=== PATIENT | female | born 1995 | race Caucasian/White ===

== ENCOUNTER 2020-04-02 14:34 | Emergency (ER) | payer BC ==
[2020-04-02] MEDS ORDERED: ACETAMINOPHEN 325 MG TABLET PO ONE (15:48)
[2020-04-02] MEDS ORDERED: RINGERS LACTATED IV ONE (15:48)
--- NOTE | 2020-04-02 15:50 | ER Document Report ---
ED Medical Screen (RME) - General Chief Complaint: Abscess Stated Complaint: ABSCESS Time Seen by Provider: 04/02/20 15:48 Primary Care Provider: ROSA ELENA FRACNO PA-C [Primary Care Provider] - Follow up as needed Information source: Patient Notes: Patient presents reporting pilonidal abscess for the past week. Patient denies any fever. Patient complains of sacral tenderness. Patient denies any previous history of pilonidal abscess. Patient tachycardic in triage. I have greeted and performed a rapid initial assessment of this patient. A comprehensive ED assessment and evaluation of the patient, analysis of test results and completion of the medical decision making process will be conducted by additional ED providers. Physical Exam - Vital signs Vitals: Temp Pulse Resp BP Pulse Ox 98.2 F 135 H 18 172/79 H 100 04/02/20 14:39 04/02/20 14:39 04/02/20 14:39 04/02/20 14:39 04/02/20 14:39 - General General appearance: Alert - Cardiovascular Rhythm: Tachycardia Heart sounds: S1 appreciated, S2 appreciated Course - Re-evaluation Re-evalutation: 04/02/20 15:50 Charge nurse advised of patient status. - Vital Signs Vital signs: Temp Pulse Resp BP Pulse Ox 98.2 F 135 H 18 172/79 H 100 04/02/20 14:39 04/02/20 14:39 04/02/20 14:39 04/02/20 14:39 04/02/20 14:39 Doctor's Discharge - Discharge Referrals: ROSA ELENA FRANCO PA-C [Primary Care Provider] - Follow up as needed
[2020-04-02] MEDS ORDERED: FENTANYL CITRATE INJ/PF 100 MCG/2 ML AMPUL IV ONE ×2 (16:18→18:11)
[2020-04-02] MEDS ORDERED: CEFAZOLIN 1 GM/D5W RTU 1 GM/50 ML RTUPB IV ONE (16:20)
[2020-04-02] MEDS ORDERED: METRONIDAZOLE 500 MG/NS RTU 500 MG/100 ML RTUPB IV ONE (16:20)
--- NOTE | 2020-04-02 16:23 | ER Document Report ---
ED Skin Rash/Insect Bite/Abscs - General Mode of Arrival: Ambulatory Information source: Patient, Parent - HPI Patient complains to provider of: Tender/swollen area Onset: Last week Onset/Duration: Worse Quality of pain: Sharp Pain Level: 5 Skin Character: Tenderness, Warm Skin Temperature: Warm Quality of rash: Painful Exacerbated by: Movement Relieved by: Denies Similar symptoms previously: No Recently seen / treated by doctor: No <BROOKLYN BURNS - Last Filed: 04/02/20 20:26> <AZAR HU - Last Filed: 04/02/20 21:48> - General Chief Complaint: Abscess Stated Complaint: ABSCESS Time Seen by Provider: 04/02/20 15:48 Primary Care Provider: MG RIOS MD [COMMUNITY BASED STAFF] - Follow up as needed Notes: Patient presents complaining of tenderness and swelling to the sacral area for the past week. Patient without any fever. Patient without any history of MRSA. (BROOKLYN BURNS) - Related Data Allergies/Adverse Reactions: No Known Allergies Allergy (Verified 04/02/20 16:51) Past Medical History - General Information source: Patient, Parent - Social History Smoking Status: Never Smoker Frequency of alcohol use: None Drug Abuse: None Lives with: Family Family History: Reviewed & Not Pertinent - Medical History Medical History: Negative Surgical Hx: Negative <BROOKLYN BURNS - Last Filed: 04/02/20 20:26> Review of Systems - Review of Systems Constitutional: No symptoms reported. denies: Fever EENT: No symptoms reported Cardiovascular: No symptoms reported. denies: Chest pain Respiratory: No symptoms reported. denies: Cough Gastrointestinal: No symptoms reported. denies: Nausea, Vomiting Genitourinary: No symptoms reported Female Genitourinary: No symptoms reported Musculoskeletal: No symptoms reported Skin: Other - Abscess with surrounding erythema Hematologic/Lymphatic: No symptoms reported Neurological/Psychological: No symptoms reported <BROOKLYN BURNS - Last Filed: 04/02/20 20:26> Physical Exam - General General appearance: Appears well, Alert In distress: None - HEENT Head: Normocephalic, Atraumatic Eyes: Normal Conjunctiva: Normal Nasal: Normal Mouth/Lips: Normal Mucous membranes: Normal Neck: Normal, Supple. No: Lymphadenopathy - Respiratory Respiratory status: No respiratory distress Chest status: Nontender Breath sounds: Normal. No: Rales, Rhonchi, Stridor, Wheezing Chest palpation: Normal - Cardiovascular Rhythm: Tachycardia Heart sounds: S1 appreciated, S2 appreciated Murmur: No - Back Back: Normal, Nontender - Extremities General upper extremity: Normal inspection, Normal strength General lower extremity: Normal inspection, Normal strength - Neurological Neuro grossly intact: Yes Cognition: Normal [place] Coma Scale Eye Opening: Spontaneous [place] Coma Scale Verbal: Oriented [place] Coma Scale Motor: Obeys Commands [place] Coma Scale Total: 15 - Psychological Associated symptoms: Normal affect, Normal mood - Skin Skin Temperature: Warm Skin Moisture: Dry Skin Color: Erythema - Area of erythema surrounding area concerning for pilonidal abscess to right superior aspect of gluteal cleft <BROOKLYN BURNS - Last Filed: 04/02/20 20:26> - Vital signs Vitals: Temp Pulse Resp BP Pulse Ox 98.2 F 135 H 18 172/79 H 100 04/02/20 14:39 04/02/20 14:39 04/02/20 14:39 04/02/20 14:39 04/02/20 14:39 Course - Laboratory Result Diagrams: 04/02/20 16:50 04/02/20 16:50 <BROOKLYN BURNS - Last Filed: 04/02/20 20:26> - Laboratory Result Diagrams: 04/02/20 16:50 04/02/20 16:50 <AZAR HU - Last Filed: 04/02/20 21:48> - Re-evaluation Re-evalutation: 04/02/20 16:34 Patient's mother who is at bedside is a nurse and was refusing to have nurses start any lab work without further explanation. Provider to bedside to explain reasoning for that work-up that was ordered. Patient and mother are agreeable with the plan to diagnostic evaluation at this time. 04/02/20 20:[address] pantoja regarding patient presentation and persistent tachycardia, Dr. pantoja recommends adding on TSH and d-dimer in addition to lactic acid. Bedside report and handoff given to Azar Hu NP. Patient and mother updated regarding patient's plan of care at this time. Mother voices concerns that she does not want to have needless testing performed. Attempted to explain to mother concerned about patient's persistent tachycardia in the setting of obvious infection with a leukocytosis. Discussed concerns about sepsis and need to make a safe decision regarding possible discharge. Mother is agreeable with 1 additional set of lab work to be performed. (BROOKLYN BURNS) 04/02/20 21:47 TSH and lactic acid were unremarkable. D-dimer was slightly elevated. Patient has no chest pain, no shortness of breath and her heart rate is 95. She has never had a DVT or PE and there is no family history of same. Discussed with Dr. Verma. No indication for chest CT at this time. Patient counseled on ED return precautions to include development of chest pain or shortness of breath. Patient and her mother verbalized understanding and agreement with return precautions and discharge plan. Patient declines the need for prescription pain medications. (AZAR HU) - Vital Signs Vital signs: Temp Pulse Resp BP Pulse Ox 98.2 F 135 H 18 132/74 H 99 04/02/20 14:39 04/02/20 14:39 04/02/20 21:01 04/02/20 21:01 04/02/20 20:19 - Laboratory Laboratory results interpreted by me: 04/02/20 04/02/20 04/02/20 16:50 16:50 16:50 WBC 19.2 H Lymph % (Auto) 6.8 L Absolute Neuts (auto) 16.6 H Seg Neutrophils % 86.4 H D-Dimer VBG pCO2 33.6 L Sodium 135.7 L Urine Blood Leukocyte Esterase Rfl 04/02/20 04/02/20 16:50 19:25 WBC Lymph % (Auto) Absolute Neuts (auto) Seg Neutrophils % D-Dimer 0.67 H VBG pCO2 Sodium Urine Blood MODERATE H Leukocyte Esterase Rfl SMALL H Procedures - Incision and Drainage Right Buttock Type: Simple Anesthetic type: 1% Lidocaine Blade size: 11 I&D procedure: Betadine prep applied Incision Method: Incision made by scalpel Amount/type of drainage: Large amount of purulent drainage Adult Front & Back picture: 1 - Site of incision and drainage 2 - Area of erythema <BROOKLYN BURNS - Last Filed: 04/02/20 20:26> Discharge <BROOKLYN BURNS - Last Filed: 04/02/20 20:26> <ODETTEAZAR - Last Filed: 04/02/20 21:48> - Discharge Clinical Impression: Abscess Condition: Stable Disposition: HOME, SELF-CARE Additional Instructions: You were seen for an abscess that required drainage. Please clean this area with soap and water twice daily and apply a topical antibiotic. Dress the area after each cleaning. Please return if you develop fever, vomiting, the pain at the site worsens, you notice spreading redness from the area, or you have any other symptoms that are concerning to you. Your heart rate was elevated during your visit. This is likely due to pain, anxiety and infection. Please return to the emergency department if you develop chest pain, shortness of breath or have a persistently elevated heart rate. We are happy to reevaluate you at any time. Please consider establishing primary care with a local physician. Prescriptions: Sulfamethoxazole/Trimethoprim [Bactrim Ds Tablet] 1 tab PO BID #14 tablet Referrals: MG RIOS MD [COMMUNITY BASED STAFF] - Follow up as needed
[2020-04-02] MEDS ORDERED: LIDOCAINE 1% INJ-PF (10 MG/ML) 30 ML SDV INFIL ONE (17:10)
[2020-04-02 17:25] LABS: ABSOLUTE BASOPHILS # (AUTO) 0.1 10^3/uL (0.0-0.2); ABSOLUTE LYMPHOCYTES (AUTO) 1.3 10^3/uL (0.5-4.7); ABSOLUTE MONOCYTES (AUTO) 1.2 10^3/uL (0.1-1.4); ABSOLUTE NEUT (AUTO) 16.6 10^3/uL (1.7-8.2); BASOPHILS % (AUTO) 0.3 % (0-2); EOSINOPHILS % (AUTO) 0.1 % (0-6); HEMATOCRIT 37.9 % (36.0-47.0); HEMOGLOBIN 12.9 g/dL (12.0-15.5); LYMPHOCYTES % (AUTO) 6.8 % (13-45); MEAN CORPUSCULAR HEMOGLOBIN 29.6 pg (27.0-33.4); MEAN CORPUSCULAR HGB CONC 34.1 g/dL (32.0-36.0); MEAN CORPUSCULAR VOLUME 87 fl (80-97); MONOCYTES % (AUTO) 6.4 % (3-13); PLATELET COUNT 253 10^3/uL (150-450); RED BLOOD COUNT 4.37 10^6/uL (3.72-5.28); RED CELL DISTRIBUTION WIDTH 13.4 % (11.5-14.0); SEGMENTED NEUTROPHILS % (AUTO) 86.4 % (42-78); TOTAL CELLS COUNTED % (AUTO) 100 %; WHITE BLOOD COUNT 19.2 10^3/uL (4.0-10.5)
[2020-04-02 17:26] LABS: VENOUS BLOOD BASE EXCESS -2.3 mmol/L; VENOUS BLOOD HCO3 21.2 mmol/L (20-32); VENOUS BLOOD PCO2 33.6 mmHg (35-63); VENOUS BLOOD PH 7.42 (7.30-7.42)
[2020-04-02 17:28] LABS: INTERNATIONAL RATION (INR) 1.03; PROTHROMBIN TIME 13.5 SEC (11.4-15.4)
[2020-04-02 17:34] LABS: ALBUMIN 4.2 g/dL (3.5-5.0); ALKALINE PHOSPHATASE 76 U/L (38-126); ANION GAP 9 (5-19); ASPARTATE AMINO TRANSFERASE 17 U/L (14-36); BILIRUBIN,TOTAL 0.4 mg/dL (0.2-1.3); BLOOD UREA NITROGEN 8 mg/dL (7-20); CALCIUM 9.1 mg/dL (8.4-10.2); CARBON DIOXIDE 23 mmol/L (22-30); CHLORIDE 104 mmol/L (98-107); GLUCOSE 97 mg/dL (75-110); POTASSIUM 3.8 mmol/L (3.6-5.0); TOTAL PROTEIN 7.2 g/dL (6.3-8.2)
[2020-04-02 20:09] LABS: APPEARANCE,URINE CLEAR; BILIRUBIN,URINE NEGATIVE (NEGATIVE); COLOR,URINE YELLOW; GLUCOSE, URINE NEGATIVE (NEGATIVE); KETONES,URINE NEGATIVE (NEGATIVE); PROTEIN,URINE NEGATIVE (NEGATIVE); URINE SPECIFIC GRAVITY 1.005; UROBILINOGEN,URINE NEGATIVE mg/dL (<2.0)
[2020-04-02 20:23] LABS: URINE AMPHETAMINES SCREEN NEGATIVE; URINE BARBITURATES SCREEN NEGATIVE; URINE BENZODIAZEPINES SCREEN NEGATIVE; URINE COCAINE SCREEN NEGATIVE; URINE MARIJUANA (THC) SCREEN NEGATIVE; URINE METHADONE SCREEN NEGATIVE; URINE PHENCYCLIDINE SCREEN NEGATIVE
--- NOTE | 2020-04-02 21:15 | EKG REPORT ---
SEVERITY:- ABNORMAL ECG - SINUS TACHYCARDIA RSR' IN V1 : Confirmed by: Jacob Schmid MD 02-Apr-2020 21:15:07
[2020-04-02 21:32] VITALS: BP 132/74
== END 2020-04-02 21:52 | disposition home or self-care (01) ==
LOC: ER 14:34
DX: L02.31 Cutaneous abscess of buttock (principal); R00.0 Tachycardia, unspecified
CPT/HCPCS: 93005; 96376; 99283; 96361; 96375; 96365; 96367; 36415; 87040; 87070; 87205; 82962; 83605; 84443; 84703; 85025; 85610; 87075; 80053; 81001; 80307; 85379; 82803; 93010; 10060; J0690; J3010; J3490 ×2; J7120; 87077

== ENCOUNTER 2020-08-15 12:44 | Emergency (ER) | payer BC ==
--- NOTE | 2020-08-15 13:42 | ER Document Report ---
ED Medical Screen (RME) - General Chief Complaint: Abscess Stated Complaint: POSSIBLE ABSCESS Time Seen by Provider: 08/15/20 13:27 - HPI Notes: Patient is a 25 y/o female with a history of a pilonidal cyst that was diagnosed in March 2020. She was seen in the ED at that time and had it drained. She states it has returned and would like it drained again today. She is requesting no further work-up as she had a full work-up last time and states it was "unnecessary". She tried to be seen by her primary care today but was unable to get in. She denies fever, nausea, and vomiting. - Related Data Allergies/Adverse Reactions: No Known Allergies Allergy (Verified 04/02/20 16:51) Past Medical History - Social History Chew tobacco use (# tins/day): No Frequency of alcohol use: None Drug Abuse: None Physical Exam - Vital signs Vitals: Temp Pulse Resp BP Pulse Ox 99.5 F 119 H 16 138/85 H 98 08/15/20 12:48 08/15/20 12:48 08/15/20 12:48 08/15/20 12:48 08/15/20 12:48 - General General appearance: Appears well, Alert In distress: None Course - Re-evaluation Re-evalutation: I have greeted and performed a rapid initial assessment of this patient. A comprehensive ED assessment and evaluation of the patient, analysis of test results and completion of medical decision making process will be conducted by an additional ED providers. - Vital Signs Vital signs: Temp Pulse Resp BP Pulse Ox 99.5 F 119 H 16 138/85 H 98 08/15/20 12:48 08/15/20 12:48 08/15/20 12:48 08/15/20 12:48 08/15/20 12:48
[2020-08-15] MEDS ORDERED: LIDOCAINE 1%/EPINEPHRINE INJ 20 ML VIAL INJ ONE (14:07)
--- NOTE | 2020-08-15 14:23 | ER Document Report ---
ED General - General Chief Complaint: Abscess Stated Complaint: POSSIBLE ABSCESS Time Seen by Provider: 08/15/20 13:27 - HPI Notes: Chief Complaint: Historian: History obtained from patient HPI: This is a 25-year-old female presents to the ER complaining of a recurrent gluteal cleft pilonidal cyst . Symptoms began about 1 week ago. Patient had a similar episode about 6 months ago which she came into the ER for incision and drainage. Denies fever chills nausea vomiting. No other treatments tried. Patient does have a PCP and states that they plan to refer her to general surgery for definitive care. Patient came to the ER to have an incision and drainage. ROS: Constitutional: no fevers. HEENT: no AQUINO, sore throat, or vision changes. CV: no chest pain or palpitations. Resp: no cough or SOB. GI: no abdominal pain, or n/v/d. : no dysuria, hematuria, or incont. MSK: no back pain, no joint swelling/redness. Skin: abscess to buttocks Neuro: no seizures, weakness, numbness, or confusion. Hematological: no ecchymosis or easy bleeding. Endocrine: no polyuria/polydipsia, no heat/cold intolerance. Psych: no SI/HI, AH/VH or memory loss. PMHx: Reviewed and agree as charted by RN. PSHx: Reviewed and agree as charted by RN. SOCHx: Reviewed and agree as charted by RN. FHX: No significant familial comorbid conditions directly related to patient complaint Current Medications: Reviewed and agree with the patient medications as charted by the RN. Allergies: Reviewed and agree with the listed allergies as charted by the RN Physical Exam: Vitals: Reviewed in chart as documented by RN. General: Alert and in NAD. Head: Normocephalic; atraumatic Eyes: PERRLA, Conjunctivae clear sclerae non-icteric bilat ENT: no soft palate swelling or uvular deviation Neck: trachea midline, no unilateral swelling/tenderness/lymphadenopathy CV: RRR, no M/R/G; symmetric distal pulses Resp: respirations even and unlabored, CTA bilat. GI: abd soft and nondistended. NTTP. normal BS. no masses/HSM. no CVAT bilat MSK: FROM of all extremities. No midline CTL spine tenderness/deformity Skin: 3 cm abscess to the right side of the 2 superior gluteal cleft. Surrounding erythema. Small amount of central fluctuance. No active drainage. No lymphangitis. No extension to the perianal perineal areas. Neuro: Alert and oriented X 4. following CN 2-12 intact. no unilateral weakness/numbness Psych: No SI/HI or AH/VH. ED Results: Medical Decision-Making: Medical Decision-making/Differential Diagnosis: Consider various etiologies including but not limited to skin/soft tissue structure infection, cellulitis, erysipelas, sepsis syndromes, focal abscess , pilonydal cyst, ect plan-plan for bedside I&D. Will DC home with Bactrim per patient request. Patient will follow PCP in 3 days for wound check and/or packing removal. Strict return factors were discussed regarding signs of worsening infection. Diagnosis: pilonidal cyst- infected Condition: stable Disposition: discharge - Related Data Allergies/Adverse Reactions: No Known Allergies Allergy (Verified 04/02/20 16:51) Past Medical History - Social History Smoking Status: Never Smoker Chew tobacco use (# tins/day): No Frequency of alcohol use: None Drug Abuse: None Family History: Reviewed & Not Pertinent Physical Exam - Vital signs Vitals: Temp Pulse Resp BP Pulse Ox 99.5 F 119 H 16 138/85 H 98 08/15/20 12:48 08/15/20 12:48 08/15/20 12:48 08/15/20 12:48 08/15/20 12:48 Course - Vital Signs Vital signs: Temp Pulse Resp BP Pulse Ox 99.5 F 119 H 16 138/85 H 98 08/15/20 12:48 08/15/20 12:48 08/15/20 12:48 08/15/20 12:48 08/15/20 12:48 Procedures - Incision and Drainage Buttock Type: Simple Anesthetic type: 1% Lidocaine w/epi, Other mL's of anesthetic: 5 Blade size: 11 I&D procedure: Shurclens applied Incision Method: Incision made by scalpel Amount/type of drainage: large amount of purulent drainage Notes: 08/15/20 15:11 small amount of plain packing placed Discharge - Discharge Clinical Impression: Infected pilonidal cyst Condition: Stable Disposition: HOME, SELF-CARE Instructions: Post Incision and Drainage Additional Instructions: Follow-up with your PCP in 2 to 3 days for wound check and packing removal. Follow printed instructions for home wound care. Complete entire course of antibiotics. Return to the ER if your condition worsens. Prescriptions: Sulfamethoxazole/Trimethoprim [Bactrim Ds Tablet] 1 tab PO BID #14 tablet
[2020-08-15 16:03] VITALS: BP 135/75
== END 2020-08-15 16:01 | disposition home or self-care (01) ==
LOC: ER 12:44
DX: L05.91 Pilonidal cyst without abscess (principal)
CPT/HCPCS: 99283; 10080; J3490